=== PATIENT | male | born 1965 | race African-American/Black ===

== ENCOUNTER → 2018-02-13 | Outpatient (CLI) | payer BC, OTHER ==
--- NOTE | 2018-02-13 08:50 | RADIOLOGY REPORT (SQ) ---
EXAM DESCRIPTION: CT ABD/PELVIS COMBO COMPLETED DATE/TIME: 02/13/2018 8:18 am REASON FOR STUDY: GASTROINTESTINAL HEMORRHAGE, UNSPECIFIED K92.2 GASTROINTESTINAL HEMORRHAGE, UNSPE CIFIED R13.10 DYSPHAGIA, UNSPECIFIED COMPARISON: None. TECHNIQUE: CT scan of the abdomen and pelvis performed with and without intravenous contrast, and wi th oral contrast. Contrasted imaging performed helical scanning technique and dynamic intravenous con trast injection. Images reviewed with lung, soft tissue, and bone windows. Reconstructed coronal and sagittal MPR images reviewed. Delayed images for evaluation of the urinary system also acquired. All images stored on PACS. All CT scanners at this facility use dose modulation, iterative reconstruction, and/or weight based d osing when appropriate to reduce radiation dose to as low as reasonably achievable (ALARA). [facility]: Dose Right [facility]: CareDose [facility]: Dose Right [facility]: Teradose 4D [facility]: DriverSide CONTRAST TYPE AND DOSE: contrast/concentration: Isovue 370.00 mg/ml; Total Contrast Delivered: 79.0 ml; Total Saline Delivered: 68.0 ml RENAL FUNCTION: Creatinine- 1.2 RADIATION DOSE: CT Rad equipment meets quality standard of care and radiation dose reduction techniq ues were employed. CTDIvol: 8.9 - 9.0 mGy. DLP: 1319 mGy-cm. . LIMITATIONS: None. FINDINGS: NON-CONTRASTED IMAGING: No significant renal or bladder calcifications. No other significa nt organ calcifications. POST-CONTRASTED IMAGING: LOWER CHEST: No significant findings. No nodules or infiltrates. LIVER: Normal size. No masses. No dilated ducts. SPLEEN: A 2.4 cm x 2.2 cm lesion in the distal third of the spleen. The CT numbers are slightly abo ve the water range. This finding may be on the basis of benign entities, including complex cyst, spl enic hemangioma. A 1.4 cm x 1.4 cm hypoattenuated lesion in the dome of the liver with CT numbers in the water range, considerations for this finding includes a cyst. A few other too small to characte rize hypoattenuated hepatic lesions. No dilated ducts. The hepatic and portal veins are patent. PANCREAS: No masses. No significant calcifications. No adjacent inflammation or peripancreatic fluid collections. Pancreatic duct not dilated. GALLBLADDER: No identified stones by CT criteria. No inflammatory changes to suggest cholecystitis. ADRENAL GLANDS: No significant masses or asymmetry. RIGHT KIDNEY AND URETER: No solid masses. No significant calcifications. No hydronephrosis or hyd roureter. LEFT KIDNEY AND URETER: No solid masses. No significant calcifications. No hydronephrosis or hydr oureter. AORTA AND VESSELS: No aneurysm. No dissection. Renal arteries, SMA, celiac without stenosis. RETROPERITONEUM: No retroperitoneal adenopathy, hemorrhage or masses. BOWEL AND PERITONEAL CAVITY: Constipation. No masses or inflammatory changes. No free fluid or jeremias toneal masses. APPENDIX: Normal. PELVIS: The prostate gland measures 5.2 cm in diameter, mild prostate gland enlargement. No free fl uid. Normal bladder. ABDOMINAL WALL: No masses. No hernias. BONES: No significant or acute findings. OTHER: Small to moderate-sized hiatal hernia. IMPRESSION: 1. A well-defined hypoattenuated lesion in the dome of the liver, likely represents a c yst. A few other too small to characterize hypoattenuated hepatic lesions. 2 A hypoattenuated splenic lesion may be on the basis of complex splenic cyst, hemangioma. 3. Constipation. 4 Mild prostate gland enlargement. 5. Small to moderate hiatal hernia. TECHNICAL DOCUMENTATION: JOB ID: [id number] Quality ID # [id number]: Final reports with documentation of one or more dose reduction techniques (e.g., Au tomated exposure control, adjustment of the mA and/or kV according to patient size, use of iterative reconstruction technique) 2010 [employer]- All Rights Reserved Reading location - IP/workstation name: [email or web address]
--- NOTE | 2018-02-13 10:23 | RADIOLOGY REPORT (SQ) ---
EXAM DESCRIPTION: BARIUM SWALLOW ESOPHAGUS COMPLETED DATE/TIME: 02/13/2018 9:59 am REASON FOR STUDY: DYSPHAGIA, UNSPECIFIED K92.2 GASTROINTESTINAL HEMORRHAGE, UNSPECIFIED R13.10 DYS PHAGIA, UNSPECIFIED COMPARISON: None. TECHNIQUE: Under fluoroscopic guidance, patient ingested effervescent granules followed by thick and thin barium. Fluoroscopic spot images and routine radiographic images acquired and stored on PACS. 12 MM BARIUM TABLET GIVEN: Yes. There is a distal esophageal stricture at the GE junction which prevents passage of the 12 mm barium tablet. LIMITATIONS: None. FLUOROSCOPY TIME: FLUORO TIME: 2 minutes 7 seconds 16 series of digital images saved to PACS. FINDINGS: NEUROMUSCULAR COORDINATION OF SWALLOW: Normal. No aspiration. ESOPHAGEAL MOTILITY: Normal primary esophageal stripping wave. Occasional tertiary contractions. ESOPHAGEAL MUCOSA: Normal mucosa without masses or ulceration. GASTRO-ESOPHAGEAL JUNCTION: There is a distal esophageal stricture, which prevents distal passage of the 12 mm barium tablet. The distal 5 cm of the esophagus is abnormal, with a long segment of peptic stricture NON-GI TRACT STRUCTURES: No significant finding. OTHER: Limited fluoro of the stomach demonstrates normal gastric motility and emptying. IMPRESSION: 5 cm long distal esophageal stricture, which prevents passage of a 12 mm barium tablet i nto the stomach. This is likely due to reflux. No gross distal esophageal mucosal abnormalities. COMMENT: Quality ID [id number]: Final reports for procedures using fluoroscopy that document radiation exp osure indices, or exposure time and number of fluorographic images (if radiation exposure indices are not available) TECHNICAL DOCUMENTATION: JOB ID: [id number] [employer]- All Rights Reserved Reading location - IP/workstation name: [facility]
== END ==
LOC: RAD 07:15
PROVIDERS: ATTEND Internal Medicine
DX: K92.2 Gastrointestinal hemorrhage, unspecified (principal); R13.10 Dysphagia, unspecified; K22.2 Esophageal obstruction; K44.9 Diaphragmatic hernia without obstruction or gangrene; N40.0 Benign prostatic hyperplasia without lower urinary tract symptoms; K59.00 Constipation, unspecified
CPT/HCPCS: 74178; 74220; 82565

== ENCOUNTER → 2018-07-06 | Day surgery (SDC) | payer OTHER ==
[~2018-07-06] MED LIST: LIDOCAINE 2% JELLY 5 ML TUBE ONE
== END ==
LOC: END 09:00
PROVIDERS: ATTEND Physician Assistant
DX: R13.10 Dysphagia, unspecified (principal)
CPT/HCPCS: 91010